=== PATIENT | male | born 1940 | race Asian ===

== ENCOUNTER 2025-01-29 00:50 | Inpatient (IN) | payer MEDICARE, BC ==
[~2025-01-29] VITALS: Ht 157.5 cm; Wt 70.8 kg
[2025-01-29 01:21] LABS: BASOPHILS % (AUTO) 0.1 % (0.0-2.0); EOSINOPHILS % (AUTO) 0.1 % (0.0-6.0); HEMATOCRIT 32 % (39-51); HEMOGLOBIN 10.1 g/dL (13.5-17.5); LYMPHOCYTES # (AUTO) 0.2 K/uL (0.8-4.8); LYMPHOCYTES % (AUTO) 4.5 % (20.0-44.0); MEAN CORPUSCULAR HEMOGLOBIN 30 PG (26.0-33.0); MEAN CORPUSCULAR HGB CONC 32 g/dl (31.0-36.0); MEAN CORPUSCULAR VOLUME 93 fL (80-96); MONOCYTES % (AUTO) 0.4 % (2.0-12.0); NEUTROPHILS # (AUTO) 4.6 K/uL (1.8-8.9); NEUTROPHILS % (AUTO) 94.9 % (43.0-81.0); PLATELET COUNT (AUTO) 222 K/uL (150-450); RED BLOOD CELL COUNT(AUTO) 3.39 MIL/uL (4.5-6.0); RED CELL DISTRIBUTION WIDTH 17.3 % (11.5-15.0); WHITE BLOOD COUNT (AUTO) 4.9 K/uL (4.3-11.0)
[2025-01-29] MEDS: IV NS 0.9% 1,000 ML BAG IV ONE (01:25)
[2025-01-29 01:28] LABS: CALCIUM, SERUM 8.5 mg/dL (8.5-10.1); CARBON DIOXIDE 27 mmol/L (21-32); CHLORIDE 101 mmol/L (98-107); GLUCOSE 121 mg/dL (74-106); POTASSIUM 3.7 mmol/L (3.5-5.1); SODIUM SERUM 139 mmol/L (136-145); UREA NITROGEN, BLOOD 50 mg/dL (7-18)
[2025-01-29 01:33] LABS: ALANINE AMINOTRANSFERASE 117 U/L (12-78); ALBUMIN 2.9 g/dL (3.4-5.0); ALKALINE PHOSPHATASE 211 U/L (46-116); ASPARTATE AMINOTRANSFERASE 400 U/L (15-37); BILIRUBIN,DIRECT 0.3 mg/dL (0.0-0.2); BILIRUBIN,TOTAL 0.5 mg/dL (0.2-1.0); LIPASE 40 U/L (16-77); TOTAL PROTEIN, SERUM 6.5 g/dL (6.4-8.2)
[2025-01-29 01:39] LABS: LACTIC ACID 3.6 mmol/L (0.4-2.0)
[2025-01-29] MEDS ORDERED: CEFEPIME 1 GM VIAL ONE (01:57)
[2025-01-29] MEDS: ONDANSETRON HCL/PF 4 MG/2 ML VIAL IVP ONE (01:57)
[2025-01-29] MEDS ORDERED: VANCOMYCIN 1 GM /D5W 250 ML PB IV ONE (01:57)
[2025-01-29] MEDS: MORPHINE SULFATE INJ 2 MG/ML DISP.SYRIN IV ONE (01:57)
[2025-01-29] MEDS ORDERED: ACETAMINOPHEN ES 500 MG TABLET ONE (02:04)
[2025-01-29] MEDS: CEFEPIME 1 GM in IV D5W 50 ML IV ONE (02:11)
[2025-01-29] MEDS: VANCOMYCIN 1 GM in IV D5W 250 ML IV ONE (02:11)
[2025-01-29] MEDS: ACETAMINOPHEN ES 500 MG TABLET PO ONE (02:13)
[2025-01-29 02:26] LABS: APPEARANCE,URINE CLEAR (CLEAR); BILIRUBIN,URINE NEGATIVE (NEGATIVE); BLOOD, URINE NEGATIVE Ery/uL (NEGATIVE); COLOR,URINE YELLOW (YELLOW); KETONES,URINE NEGATIVE (NEGATIVE); LEUKOCYTE ESTERASE ,URINE NEGATIVE (NEGATIVE); NITRITE, URINE NEGATIVE (NEGATIVE); PROTEIN,URINE NEGATIVE (NEGATIVE); UGLUCOSE NEGATIVE (NEGATIVE); UROBILINOGEN,URINE 0.2 EU/dL (0.2)
[2025-01-29] MEDS ORDERED: ENOXAPARIN SODIUM 40 MG/0.4 ML DISP.SYRIN SQ SCH (04:00)
[2025-01-29] MEDS ORDERED: hydrALAZINE HCL IV 20 MG VIAL IV PRN (04:00)
[2025-01-29] MEDS ORDERED: MORPHINE SULFATE INJ 2 MG/ML DISP.SYRIN IV PRN (04:00)
[2025-01-29] MEDS ORDERED: ACETAMINOPHEN 325 MG TABLET PO PRN (04:00)
[2025-01-29] MEDS: IV NS 0.9% 1,000 ML IV SCH (04:39)
[2025-01-29 05:28] VITALS: BP 113/65; TEMP 99; O2SAT 94
[2025-01-29 08:00] VITALS: BP 102/54; TEMP 98.3; O2SAT 96
[2025-01-29] MEDS: HEPARIN SODIUM, PORCINE 5000 UNITS/1 ML VIAL SQ SCH (09:15)
[2025-01-29] MEDS: CEFEPIME 1 GM in IV D5W 50 ML IV SCH (09:16)
[2025-01-29] MEDS ORDERED: PANT40TA49 PO (10:59)
[2025-01-29] MEDS ORDERED: HYDR10TA PO (10:59)
[2025-01-29] MEDS ORDERED: FURO20TA4 PO (10:59)
[2025-01-29] MEDS ORDERED: AMYL1CAP58 PO (10:59)
[2025-01-29] MEDS ORDERED: ASPI-1420 PO (10:59)
[2025-01-29] MEDS ORDERED: TPN/PPN PER PHARMACY IV SCH (11:30)
[2025-01-29] MEDS: ONDANSETRON HCL/PF 4 MG/2 ML VIAL IVP PRN (11:51)
[2025-01-29 12:00] VITALS: BP 104/69; TEMP 97.9; O2SAT 95
[2025-01-29] MEDS: BLOOD SUGAR DIAGNOSTIC 1 EACH STRIP IN SCH (12:00)
[2025-01-29] MEDS ORDERED: DEXTROSE 50%-WATER 50 ML DISP.SYRIN IV PRN (12:00)
[2025-01-29 12:12] LABS: MAGNESIUM 2.1 mg/dL (1.8-2.4); PHOSPHORUS 2.5 mg/dL (2.5-4.9)
[2025-01-29] MEDS ORDERED: HYDROCORTISONE 10 MG TABLET PO SCH ×3 (14:30→15:10)
[2025-01-29] MEDS: HYDROCORTISONE SOD SUCCINATE 100 MG/2 ML VIAL IV ONE (15:24)
[2025-01-29] MEDS: HYDROCORTISONE 5 MG TABLET PO SCH ×2 (15:30→16:05)
[2025-01-29] MEDS: TPN #1 IV SCH (15:31)
[2025-01-29 16:00] VITALS: BP 124/64; TEMP 98.4; O2SAT 95
[2025-01-29] MEDS: LIPASE/PROTEASE/AMYLASE 1 EACH CAPSULE.DR PO SCH (18:02)
[2025-01-29 20:00] VITALS: BP 132/64; TEMP 98.2; O2SAT 95
[2025-01-30] VITALS (7 sets, daily range): BP systolic 119–135; BP diastolic 62–85; TEMP 97.3–98.2; O2SAT 94–98
[2025-01-30 06:35] LABS: ALBUMIN 2.1 g/dL (3.4-5.0); BILIRUBIN,TOTAL 0.5 mg/dL (0.2-1.0); CALCIUM, SERUM 7.9 mg/dL (8.5-10.1); CREATININE 1.8 mg/dL (0.6-1.3); MAGNESIUM 2.2 mg/dL (1.8-2.4); PHOSPHORUS 2.9 mg/dL (2.5-4.9); POTASSIUM 3.5 mmol/L (3.5-5.1); TOTAL PROTEIN, SERUM 5.3 g/dL (6.4-8.2)
[2025-01-30 06:37] LABS: BASOPHILS % (AUTO) 0.2 % (0.0-2.0); EOSINOPHILS % (AUTO) 0.2 % (0.0-6.0); HEMATOCRIT 24 % (39-51); HEMOGLOBIN 7.8 g/dL (13.5-17.5); LYMPHOCYTES # (AUTO) 0.9 K/uL (0.8-4.8); LYMPHOCYTES % (AUTO) 7.6 % (20.0-44.0); MEAN CORPUSCULAR HEMOGLOBIN 30 PG (26.0-33.0); MEAN CORPUSCULAR HGB CONC 33 g/dl (31.0-36.0); MEAN CORPUSCULAR VOLUME 91 fL (80-96); MONOCYTES # (AUTO) 0.7 K/uL (0.1-1.30); MONOCYTES % (AUTO) 5.7 % (2.0-12.0); NEUTROPHILS # (AUTO) 10.5 K/uL (1.8-8.9); NEUTROPHILS % (AUTO) 86.3 % (43.0-81.0); PLATELET COUNT (AUTO) 217 K/uL (150-450); RED BLOOD CELL COUNT(AUTO) 2.61 MIL/uL (4.5-6.0); WHITE BLOOD COUNT (AUTO) 12.2 K/uL (4.3-11.0)
[2025-01-30 06:40] LABS: CREATININE, URINE 48.6 MG/DL (30.0-125.0); URINE TOTAL PROTEIN 32.3 mg/dL (0-11.9)
[2025-01-30 06:44] LABS: APPEARANCE,URINE CLEAR (CLEAR); BILIRUBIN,URINE NEGATIVE (NEGATIVE); BLOOD, URINE NEGATIVE Ery/uL (NEGATIVE); COLOR,URINE YELLOW (YELLOW); KETONES,URINE NEGATIVE (NEGATIVE); LEUKOCYTE ESTERASE ,URINE NEGATIVE (NEGATIVE); NITRITE, URINE NEGATIVE (NEGATIVE); PH,URINE 6.5 (5.0-8.0); PROTEIN,URINE TRACE mg/dl (NEGATIVE); UGLUCOSE NEGATIVE (NEGATIVE); UROBILINOGEN,URINE 0.2 EU/dL (0.2)
[2025-01-30 06:50] LABS: CHOLESTEROL 112 mg/dL (<200); HDL CHOLESTEROL 44 mg/dL (40-60); LDL 61 mg/dL (0-99); TRIGLYCERIDES 63 mg/dL (30-150)
[2025-01-30 07:32] LABS: ADD URINE CULTURE NO; BACTERIA,URINE Rare /HPF (None Seen); RBC,URINE 0-2 /HPF (0-2); SQUAMOUS EPITHELIAL CELL,UR None Seen /HPF (None Seen); WBC,URINE 0-2 /HPF (0-3)
[2025-01-30] MEDS: PANTOPRAZOLE 40 MG TABLET.DR PO SCH (09:02)
[2025-01-30 10:03] LABS: EOSINOPHIL,URINE None Seen
[2025-01-30] MEDS: INSULIN REGULAR, HUMAN 100 UNIT/ML 3 ML VIAL SQ PRN (12:07)
[2025-01-30] MEDS ORDERED: TPN/PPN PER PHARMACY IV SCH (14:00)
[2025-01-30] MEDS: PPN #1 IV SCH (17:18)
[2025-01-31] VITALS: BP 140/86; TEMP 97.9; O2SAT 97
[2025-01-31 04:00] VITALS: BP 147/71; TEMP 97.7; O2SAT 98
[2025-01-31 06:12] LABS: PTH, INTACT 96 pg/mL (15-65)
[2025-01-31 07:13] LABS: CALCIUM, SERUM 7.7 mg/dL (8.5-10.1); CREATININE 1.7 mg/dL (0.6-1.3); MAGNESIUM 2.3 mg/dL (1.8-2.4); PHOSPHORUS 2.2 mg/dL (2.5-4.9); POTASSIUM 3.6 mmol/L (3.5-5.1)
[2025-01-31 08:00] VITALS: BP 116/79; TEMP 98.4; O2SAT 97
[2025-01-31 09:30] LABS: BASOPHILS # (AUTO) 0.1 K/uL (0.0-0.2); BASOPHILS % (AUTO) 0.6 % (0.0-2.0); EOSINOPHILS # (AUTO) 0.1 K/uL (0.0-0.7); EOSINOPHILS % (AUTO) 1.7 % (0.0-6.0); HEMATOCRIT 25 % (39-51); LYMPHOCYTES # (AUTO) 0.8 K/uL (0.8-4.8); LYMPHOCYTES % (AUTO) 9.4 % (20.0-44.0); MEAN CORPUSCULAR HEMOGLOBIN 30 PG (26.0-33.0); MEAN CORPUSCULAR HGB CONC 33 g/dl (31.0-36.0); MEAN CORPUSCULAR VOLUME 92 fL (80-96); MONOCYTES # (AUTO) 0.8 K/uL (0.1-1.30); MONOCYTES % (AUTO) 10.2 % (2.0-12.0); NEUTROPHILS # (AUTO) 6.5 K/uL (1.8-8.9); NEUTROPHILS % (AUTO) 78.1 % (43.0-81.0); PLATELET COUNT (AUTO) 224 K/uL (150-450); RED BLOOD CELL COUNT(AUTO) 2.68 MIL/uL (4.5-6.0); RED CELL DISTRIBUTION WIDTH 16.7 % (11.5-15.0); WHITE BLOOD COUNT (AUTO) 8.3 K/uL (4.3-11.0)
[2025-01-31 12:00] VITALS: BP 122/74; TEMP 97.9; O2SAT 97
[2025-01-31] MEDS ORDERED: ERTA1VIA4 IJ (12:11)
[2025-01-31] MEDS ORDERED: FAT EMULSION 20% 500 ML in PREMIX 1 EA IV SCH (14:00)
[2025-01-31] MEDS ORDERED: Sodium Phosphate 15 MMOL in IV NS 0.9% 245 ML IV SCH (16:00)
[2025-01-31] MEDS ORDERED: LEVOFLOXACIN 500 MG /D5W 100ML 500 MG in PREMIX 1 EA IV ONE (16:00)
[2025-01-31] MEDS ORDERED: PPN #2 IV SCH (18:18)
[2025-02-01] MEDS ORDERED: SULF1TAB48 PO (09:02)
[2025-02-01] MEDS ORDERED: LEVOFLOXACIN 500 MG /D5W 100ML 500 MG in PREMIX 1 EA IV SCH (16:00)
== END 2025-01-31 16:08 | disposition home health service (06) | DRG 871 ==
LOC: ER 00:57 → MED 03:36 → TELE 04:30
PROVIDERS: ADMIT Nurse Practitioner Acute Care; ATTEND Nurse Practitioner Acute Care
DX: A41.9 Sepsis, unspecified organism (principal); K65.9 Peritonitis, unspecified; E27.40 Unspecified adrenocortical insufficiency; N17.9 Acute kidney failure, unspecified; E87.20 Acidosis, unspecified; N18.30 Chronic kidney disease, stage 3 unspecified; I12.9 Hypertensive chronic kidney disease with stage 1 through stage 4 chronic kidney disease, or unspecified chronic kidney disease; D63.8 Anemia in other chronic diseases classified elsewhere; Z90.411 Acquired partial absence of pancreas; Z90.3 Acquired absence of stomach [part of]; Z85.46 Personal history of malignant neoplasm of prostate; Z85.028 Personal history of other malignant neoplasm of stomach; Z85.07 Personal history of malignant neoplasm of pancreas; Z90.79 Acquired absence of other genital organ(s); R74.01 Elevation of levels of liver transaminase levels; R53.1 Weakness; I71.43 Infrarenal abdominal aortic aneurysm, without rupture; I25.10 Atherosclerotic heart disease of native coronary artery without angina pectoris; K52.9 Noninfective gastroenteritis and colitis, unspecified; T45.1X5A Adverse effect of antineoplastic and immunosuppressive drugs, initial encounter; Y92.009 Unspecified place in unspecified non-institutional (private) residence as the place of occurrence of the external cause
CPT/HCPCS: 36415; 71045-TC; 76770-TC; 80048-TC; 80053-TC; 80061-TC; 80076-TC; 81001; 82550-TC; 82570-TC; 83605-TC; 83690-TC; 83735-TC; 83970; 84100-TC; 84155; 84165; 84300-TC; 85025-TC; 87040-TC; 87086-TC; 87186-TC; A4216; A9563; G0378; J0692; J1644; J1720; J1815; J1956; J2405; J3370; J3490; J7030; J7050; J7060

== ENCOUNTER 2025-02-04 03:57 | Inpatient (IN) | payer MEDICARE, BC ==
[~2025-02-04] VITALS: Ht 154.9 cm; Wt 69.1 kg
[~2025-02-04 03:57] MED LIST: AMYL1CAP58 PO; ASPI-1420 PO; ERTA1VIA4 IJ; FURO20TA4 PO; HYDR10TA PO; PANT40TA49 PO; SULF1TAB48 PO
[2025-02-04] MEDS: MORPHINE SULFATE INJ 2 MG/ML DISP.SYRIN IV ONE (04:30)
[2025-02-04] MEDS: IV NS 0.9% 1,000 ML BAG IV ONE (04:30)
[2025-02-04] MEDS: ONDANSETRON HCL/PF - ER 4 MG/2 ML VIAL IV ONE (04:30)
[2025-02-04] MEDS: ACETAMINOPHEN ES 500 MG TABLET PO ONE (04:30)
[2025-02-04 04:34] LABS: BASOPHILS % (AUTO) 0.5 % (0.0-2.0); EOSINOPHILS # (AUTO) 0.1 K/uL (0.0-0.7); EOSINOPHILS % (AUTO) 0.8 % (0.0-6.0); HEMATOCRIT 27 % (39-51); HEMOGLOBIN 8.8 g/dL (13.5-17.5); LYMPHOCYTES # (AUTO) 0.8 K/uL (0.8-4.8); LYMPHOCYTES % (AUTO) 8.7 % (20.0-44.0); MEAN CORPUSCULAR HEMOGLOBIN 30 PG (26.0-33.0); MEAN CORPUSCULAR HGB CONC 33 g/dl (31.0-36.0); MEAN CORPUSCULAR VOLUME 91 fL (80-96); MONOCYTES # (AUTO) 0.7 K/uL (0.1-1.30); MONOCYTES % (AUTO) 8.1 % (2.0-12.0); NEUTROPHILS # (AUTO) 7.5 K/uL (1.8-8.9); NEUTROPHILS % (AUTO) 81.9 % (43.0-81.0); PLATELET COUNT (AUTO) 286 K/uL (150-450); RED BLOOD CELL COUNT(AUTO) 2.98 MIL/uL (4.5-6.0); RED CELL DISTRIBUTION WIDTH 17.3 % (11.5-15.0); WHITE BLOOD COUNT (AUTO) 9.1 K/uL (4.3-11.0)
[2025-02-04] MEDS ORDERED: ACETAMINOPHEN ES 500 MG TABLET ONE (04:38)
[2025-02-04] MEDS ORDERED: MORPHINE SULFATE INJ 4 MG/ML DISP.SYRIN ONE (04:38)
[2025-02-04] MEDS ORDERED: ONDANSETRON HCL/PF 4 MG/2 ML VIAL ONE (04:38)
[2025-02-04 04:50] LABS: INR 1.13 (0.91-1.10); PARTIAL THROMBOPLASTIN TIME 26.8 SEC (24.3-34.3); PROTHROMBIN TIME 11.9 SECS (9.2-11.1)
[2025-02-04 05:00] LABS: ALANINE AMINOTRANSFERASE 58 U/L (12-78); ALBUMIN 2.8 g/dL (3.4-5.0); ALKALINE PHOSPHATASE 205 U/L (46-116); ASPARTATE AMINOTRANSFERASE 37 U/L (15-37); BILIRUBIN,DIRECT 0.2 mg/dL (0.0-0.2); BILIRUBIN,TOTAL 0.4 mg/dL (0.2-1.0); CALCIUM, SERUM 8.3 mg/dL (8.5-10.1); CARBON DIOXIDE 22 mmol/L (21-32); CHLORIDE 99 mmol/L (98-107); CREATININE 2.6 mg/dL (0.6-1.3); GLUCOSE 110 mg/dL (74-106); POTASSIUM 3.3 mmol/L (3.5-5.1); SODIUM SERUM 134 mmol/L (136-145); TOTAL PROTEIN, SERUM 6.6 g/dL (6.4-8.2); UREA NITROGEN, BLOOD 39 mg/dL (7-18)
[2025-02-04 05:24] LABS: LACTIC ACID 2.1 mmol/L (0.4-2.0)
[2025-02-04 05:57] LABS: APPEARANCE,URINE CLEAR (CLEAR); BILIRUBIN,URINE NEGATIVE (NEGATIVE); BLOOD, URINE TRACE-INTA Ery/uL (NEGATIVE); COLOR,URINE YELLOW (YELLOW); KETONES,URINE NEGATIVE (NEGATIVE); LEUKOCYTE ESTERASE ,URINE NEGATIVE (NEGATIVE); NITRITE, URINE NEGATIVE (NEGATIVE); PROTEIN,URINE TRACE mg/dl (NEGATIVE); UGLUCOSE NEGATIVE (NEGATIVE); UROBILINOGEN,URINE 0.2 EU/dL (0.2)
[2025-02-04 05:58] LABS: ADD URINE CULTURE NO; BACTERIA,URINE Rare /HPF (None Seen); RBC,URINE 0-2 /HPF (0-2); SQUAMOUS EPITHELIAL CELL,UR Few /HPF (None Seen); WBC,URINE 0-2 /HPF (0-3)
[2025-02-04 06:41] VITALS: TEMP 98.7
[2025-02-04] MEDS: MEROPENEM 500 MG in IV NS 0.9% 50 ML IV ONE (08:30)
[2025-02-04 09:00] VITALS: BP 110/60; O2SAT 99
[2025-02-04] MEDS ORDERED: MAG HYDROX/AL HYDROX/SIMETH 30 ML UDC PO PRN (09:00)
[2025-02-04] MEDS ORDERED: MORPHINE SULFATE INJ 2 MG/ML DISP.SYRIN IV PRN (09:00)
[2025-02-04] MEDS ORDERED: ACETAMINOPHEN 325 MG TABLET PO PRN (09:00)
[2025-02-04] MEDS ORDERED: ONDANSETRON HCL/PF 4 MG/2 ML VIAL IVP PRN (09:00)
[2025-02-04] MEDS ORDERED: MAGNESIUM HYDROXIDE 30 ML UDC PO PRN (09:00)
[2025-02-04] MEDS ORDERED: SULF1TAB48 PO (09:18)
[2025-02-04] MEDS ORDERED: PROC10TA29 PO (09:19)
[2025-02-04] MEDS: DOCUSATE SODIUM LIQ 100 MG/10 ML UDC PO SCH (10:33)
[2025-02-04] MEDS: PANTOPRAZOLE 40 MG TABLET.DR PO SCH (10:34)
[2025-02-04] MEDS: HYDROCORTISONE 20 MG TABLET PO SCH (10:34)
[2025-02-04] MEDS: Z GUARD REMEDY 4 OZ OINT TP PRN (10:35)
[2025-02-04] MEDS: IV D5 LR 1,000 ML IV PRN (10:35)
[2025-02-04] MEDS: POLYETHYLENE GLYCOL 3350 17 GM POWD.PACK PO ONE (10:36)
[2025-02-04] MEDS: MINERAL OIL 133 ML (PYXIS) 1 EA ENEMA RC ONE (13:26)
[2025-02-04] MEDS ORDERED: MEROPENEM 500 MG in IV NS 0.9% 50 ML IV SCH (21:00)
== END 2025-02-04 15:23 | disposition short-term general hospital (02) | DRG 871 ==
LOC: ER 04:08 → MED 09:11
PROVIDERS: ADMIT Nurse Practitioner Acute Care; ATTEND Nurse Practitioner Acute Care
DX: A41.9 Sepsis, unspecified organism (principal); N17.0 Acute kidney failure with tubular necrosis; E44.0 Moderate protein-calorie malnutrition; E87.20 Acidosis, unspecified; E87.1 Hypo-osmolality and hyponatremia; N13.30 Unspecified hydronephrosis; R18.8 Other ascites; C25.9 Malignant neoplasm of pancreas, unspecified; E27.40 Unspecified adrenocortical insufficiency; C24.1 Malignant neoplasm of ampulla of Vater; K59.00 Constipation, unspecified; K21.9 Gastro-esophageal reflux disease without esophagitis; Z90.411 Acquired partial absence of pancreas; Z90.49 Acquired absence of other specified parts of digestive tract; Z90.79 Acquired absence of other genital organ(s); Z85.09 Personal history of malignant neoplasm of other digestive organs; Z85.07 Personal history of malignant neoplasm of pancreas; Z85.46 Personal history of malignant neoplasm of prostate; Z92.21 Personal history of antineoplastic chemotherapy; Z79.82 Long term (current) use of aspirin; Z79.899 Other long term (current) drug therapy; I12.9 Hypertensive chronic kidney disease with stage 1 through stage 4 chronic kidney disease, or unspecified chronic kidney disease; E88.09 Other disorders of plasma-protein metabolism, not elsewhere classified; E87.6 Hypokalemia; M89.8X9 Other specified disorders of bone, unspecified site; N18.9 Chronic kidney disease, unspecified; C61 Malignant neoplasm of prostate; D63.8 Anemia in other chronic diseases classified elsewhere; E86.9 Volume depletion, unspecified
CPT/HCPCS: 36415; 71045-TC; 76770-TC; 80048-TC; 80076-TC; 81001; 83605-TC; 85025-TC; 85730-TC; 87040-TC; 87086-TC; A4223; G0378; J2185; J2270; J2405; J3490; J7040